=== PATIENT | female | born 1975 | race Caucasian/White ===

== ENCOUNTER 2019-10-18 11:52 | Emergency (ER) | payer SELFPAY ==
[2019-10-18 12:06] VITALS: BP 136/64
--- NOTE | 2019-10-18 13:26 | UC ---
Upper Extremity HPI - HPI Summary HPI Summary: Pt presents with c/o of right arm pain, burning and weakness X 3 months. Pt denies injury or hx of trauma or sx. Pt denies rash. Pt has been lifting heavy objects - History of Current Complaint Chief Complaint: UCUpperExtremity Stated Complaint: RT ARM BURNING SENSATION Time Seen by Provider: 10/18/19 13:12 Hx Obtained From: Patient Hx Last Menstrual Period: IUD in place ?: No Onset/Duration: Gradual Onset, Lasting Weeks - 3 months, Still Present Severity Initially: Mild Severity Currently: Moderate Pain Intensity: 7 Location Of Pain: Is Discrete @ - right upper arm, Radiates To - right hand Character: Dull, Aching, Burning Aggravating Factor(s): Movement Alleviating Factor(s): Nothing Associated Signs And Symptoms: Positive: Weakness Related History: Dominant Hand Right - Risk Factors Non-Orthopedic Risk Factor: Negative DVT Risk Factors: Negative Septic Arthritis Risk Factor: Negative Compartment Syndrome Risk Factors: Pain, Paresthesias - Allergies/Home Medications Allergies/Adverse Reactions: Allergies Allergy/AdvReac Type Severity Reaction Status Date / Time No Known Allergies Allergy Verified 10/18/19 12:06 Home Medications: Home Medications Biotin/Calcium Carbonate [Biotin 800 Mcg Tablet] 10,000 mcg PO DAILY 10/18/19 [ History Confirmed 10/18/19] Calcium Carbonate [Calcium] 500 mg PO DAILY 10/18/19 [History Confirmed 10/18/19 ] Cholecalciferol (Vitamin D3) [Vitamin D3] 50 mcg PO DAILY 10/18/19 [History Confirmed 10/18/19] Ibuprofen TAB* [Motrin TAB* 800 MG] 800 mg PO Q8H PRN #21 tab 10/18/19 [Rx] Multivit-Min/Iron/Folic Acid/K [One Daily Women's Multivitamin] 1 each PO DAILY 10/18/19 [History Confirmed 10/18/19] predniSONE 10 mg TAB [Deltasone 10 MG TAB*] 30 mg PO DAILY #12 tab 10/18/19 [Rx] PMH/Surg Hx/FS Hx/Imm Hx Previously Healthy: Yes - Surgical History Surgical History: Yes Surgery Procedure, Year, and Place: gastric sleeve - Family History Known Family History: Positive: Cardiac Disease - Social History Occupation: Employed Full-time Lives: With Family Alcohol Use: Weekly Substance Use Type: None Smoking Status (MU): Never Smoked Tobacco Have You Smoked in the Last Year: No - Immunization History Vaccination Up to Date: Yes Review of Systems All Other Systems Reviewed And Are Negative: Yes Constitutional: Positive: Negative Skin: Positive: Negative Eyes: Positive: Negative ENT: Positive: Negative, Dental Pain Cardiovascular: Positive: Negative Gastrointestinal: Positive: Negative Genitourinary: Positive: Negative Motor: Positive: Decreased ROM - right hand Neurovascular: Positive: Negative Musculoskeletal: Positive: Arthralgia, Myalgia Neurological/Mental Status: Positive: Negative Psychological: Positive: Negative Is Patient Immunocompromised?: No Physical Exam Triage Information Reviewed: Yes Appearance: Well-Appearing Vital Signs: Initial Vital Signs Temp 98.4 F 10/18/19 11:59 Pulse 73 10/18/19 11:59 Resp 18 10/18/19 11:59 BP 136/64 10/18/19 11:59 Pulse Ox 100 10/18/19 11:59 Vital Signs Reviewed: Yes Eye Exam: Normal ENT: Positive: Hearing grossly normal Dental Exam: Normal Neck exam: Normal Respiratory Exam: Normal Musculoskeletal: Positive: Strength Limited @ - right hand and upper extremity, ROM Limited @ Neurological Exam: Normal Psychological Exam: Normal Skin Exam: Normal Upper Extremity Course/Dx - Course Course Of Treatment: Pt did not have rash or hx of gout - Differential Dx/Diagnosis Differential Diagnosis/HQI/PQRI: Arthritis, Bursitis, Strain, Sprain Provider Diagnosis: Right upper limb pain Discharge ED - Sign-Out/Discharge Documenting (check all that apply): Patient Departure All imaging exams completed and their final reports reviewed: No Studies - Discharge Plan Condition: Stable Disposition: HOME Prescriptions: Ibuprofen TAB* [Motrin TAB* 800 MG] 800 mg PO Q8H PRN #21 tab PRN Reason: Pain - Mild predniSONE 10 mg TAB [Deltasone 10 MG TAB*] 30 mg PO DAILY #12 tab Patient Education Materials: Arthralgia (ED), Arm Pain (ED) Forms: *Work Release Referrals: Florin Jean MD [Medical Doctor] - As Soon As Possible No Primary Care Phys,NOPCP [Primary Care Provider] - - Billing Disposition and Condition Condition: STABLE Disposition: Home
== END 2019-10-18 13:36 | disposition home or self-care (01) ==
LOC: UCCORT 11:52
DX: M79.601 Pain in right arm (principal); M62.81 Muscle weakness (generalized); R20.2 Paresthesia of skin
CPT/HCPCS: 99202; G0463